=== PATIENT | female | born 1935 | race Hispanic/Latino ===

== ENCOUNTER 2017-07-23 22:33 | Observation (INO) | payer MEDICARE, BC ==
--- NOTE | 2017-07-23 23:19 | ED PDOC ---
Arrival/HPI - General Chief Complaint: Weakness/Neurological Deficit Time Seen by Provider: 07/23/17 22:39 Historian: Patient - History of Present Illness Narrative History of Present Illness (Text): 07/23/17 22:57 Ashley Perry is an 82 year old female, whose past medical history includes questionable migraine and questionable seizures,CAD,Cardiac Stents, who presents to the emergency department complaining of near syncope and generalized weakness that began at 22:00 tonight,prompting her to come to the emergency department. Patient denies chest pain, shortness of breath, visual disturbance, headache, or any other complaint at this time. Time/Duration: 1-3 hours Symptom Onset: Gradual Severity Level: Mild Activities at Onset: Light Context: Home Past Medical History - Provider Review Nursing Documentation Reviewed: Yes - Infectious Disease Hx of Infectious Diseases: None - Cardiac Hx Cardiac Disorders: Yes Hx Hypertension: Yes - Pulmonary Hx Respiratory Disorders: No - Neurological Hx Neurological Disorder: Yes Hx Syncope: Yes - HEENT Hx HEENT Disorder: No - Renal Hx Renal Disorder: No - Endocrine/Metabolic Hx Endocrine Disorders: No - Hematological/Oncological Hx Blood Disorders: No - Integumentary Hx Dermatological Disorder: No - Musculoskeletal/Rheumatological Hx Musculoskeletal Disorders: No - Gastrointestinal Hx Gastrointestinal Disorders: No - Genitourinary/Gynecological Hx Genitourinary Disorders: No - Psychiatric Hx Psychophysiologic Disorder: No Hx Substance Use: No Family/Social History - Physician Review Nursing Documentation Reviewed: Yes Family/Social History: No Known Family HX Smoking Status: Never Smoked Hx Alcohol Use: No Hx Substance Use: No Allergies/Home Meds Allergies/Adverse Reactions: Allergies azithromycin Allergy (Verified 07/23/17 23:01) ANAPHYLAXIS Home Medications: Home Meds Medication Instructions Recorded Confirmed Atorvastatin [Lipitor] 20 mg PO HS 07/23/17 07/23/17 Gabapentin [Neurontin] 300 mg PO HS 07/23/17 07/23/17 Levocetirizine Dihydrochloride 5 mg PO HS 07/23/17 07/23/17 [Xyzal] Metoprolol Succinate 50 mg PO DAILY 07/23/17 07/23/17 Review of Systems - Physician Review All systems were reviewed & negative as marked: Yes - Review of Systems Constitutional: Other (generalized weakness) ENT: absent: Hearing Changes Respiratory: absent: SOB, Cough Cardiovascular: Syncope (Near syncope). absent: Chest Pain, Other Gastrointestinal: absent: Abdominal Pain Genitourinary Female: absent: Dysuria, Frequency Musculoskeletal: absent: Arthralgias, Back Pain Skin: absent: Rash, Pruritis Neurological: absent: Headache, Dizziness Endocrine: absent: Diaphoresis Hemo/Lymphatic: absent: Adenopathy Psychiatric: absent: Depression Physical Exam - Systems Exam Head: Present: Atraumatic, Normocephalic Pupils: Present: PERRL Extroacular Muscles: Present: EOMI Conjunctiva: Present: Normal Mouth: Present: Moist Mucous Membranes Neck: Present: Normal Range of Motion Respiratory/Chest: Present: Clear to Auscultation, Good Air Exchange. No: Respiratory Distress, Accessory Muscle Use Cardiovascular: Present: Regular Rate and Rhythm, Normal S1, S2. No: Murmurs Abdomen: Present: Normal Bowel Sounds. No: Tenderness, Distention, Peritoneal Signs Back: Present: Normal Inspection Upper Extremity: Present: Normal Inspection. No: Cyanosis, Edema Lower Extremity: Present: Normal Inspection. No: Edema Neurological: Present: GCS=15, CN II-XII Intact, Speech Normal Skin: Present: Warm, Dry, Normal Color. No: Rashes Psychiatric: Present: Alert, Oriented x 3, Normal Insight, Normal Concentration Medical Decision Making ED Course and Treatment: 07/23/17 23:24 Impression: 82 year old female complaining of near syncope and generalized weakness at 22: 00 tonight Differential Diagnosis included but are not limited to: Plan: -- EKG -- Chest X-ray -- Head CT w/o contrast -- Labs -- Reassess and disposition Progress Notes: 07/24/17 02:09 CT Head Without Intravenous Contrast Creator : Erica Chamberlain FINDINGS: No intracranial hemorrhage. No intracranial edema. No evidence of acute infarct. Stable focal left insular white matter ischemic change. Mild mucosal thickening of the ethmoid, sphenoid, and maxillary sinuses decreased from prior. Fluid in the right mastoid air cells similar to prior. IMPRESSION: No acute findings. 07/24/17 02:[address] Alvarado who accepts request. Dr. Acosta on consult. 07/24/17 02:32 CXR Impression: As read by me, no pneumothorax, no pneumonia, no cardiomegaly, no infiltrates - Lab Interpretations Lab Results: 07/23/17 23:38 07/23/17 23:38 Lab Results 07/23/17 23:38: WBC 7.8 D, RBC 4.60, Hgb 13.1, Hct 40.6, MCV 88.3, MCH 28.5, MCHC 32.3, RDW 14.3, Plt Count 200, MPV 11.5 H 07/23/17 23:38: Sodium 143, Potassium 4.2, Chloride 104, Carbon Dioxide 29, Anion Gap 14, BUN 22 H, Creatinine 0.8, Est GFR ( Amer) > 60, Est GFR ( Non-Af Amer) > 60, Random Glucose 95, Calcium 8.8, Total Bilirubin 0.4, AST 31, ALT 25, Alkaline Phosphatase 75, Lactate Dehydrogenase 578, Total Creatine Kinase 66, Troponin I < 0.01, Total Protein 6.8, Albumin 4.0, Globulin 2.9, Albumin/Globulin Ratio 1.4 07/23/17 23:38: PT 10.7, INR 0.99, APTT 25.4 I have reviewed the lab results: Yes - RAD Interpretation Radiology Orders: 07/23/17 23:04 HEAD W/O CONTRAST [CT] Stat CHEST PORTABLE [RAD] Stat - Scribe Statement The provider has reviewed the documentation as recorded by the Aida Stanton Provider Scribe Attestation: All medical record entries made by the Sarthakibmert were at my direction and personally dictated by me. I have reviewed the chart and agree that the record accurately reflects my personal performance of the history, physical exam, medical decision making, and the department course for this patient. I have also personally directed, reviewed, and agree with the discharge instructions and disposition. Disposition/Present on Arrival - Present on Arrival Any Indicators Present on Arrival: No History of DVT/PE: No History of Uncontrolled Diabetes: No Urinary Catheter: No History of Decub. Ulcer: No History Surgical Site Infection Following: None - Disposition Have Diagnosis and Disposition been Completed?: Yes Diagnosis: Near syncope Disposition: HOSPITALIZED Disposition Time: 02:29 Patient Plan: Observation Patient Problems: Current Active Problems Problem Status Onset Near syncope Acute Condition: GOOD
[2017-07-23 23:53] LABS: HEMATOCRIT 40.6 % (36.0-48.0); MEAN CELL VOLUME 88.3 fl (80.0-105.0); MEAN CORPUSCULAR HEMOGLOBIN 28.5 pg (25.0-35.0); MEAN CORPUSCULAR HGB CONC 32.3 g/dl (31.0-37.0); MEAN PLATELET VOLUME 11.5 fl (7.0-11.0); RED CELL DISTRIBUTION WIDTH 14.3 % (11.5-14.5); WHITE BLOOD COUNT 7.8 10^3/ul (4.5-11.0)
[2017-07-24 00:02] LABS: INR 0.99 (0.93-1.08); PARTIAL THROMBOPLASTIN TIME 25.4 Seconds (23.7-30.8)
[2017-07-24 00:10] LABS: ALB/GLOB RATIO 1.4 (1.1-1.8); ALKALINE PHOSPHATASE 75 U/L (38-126); ALT/SGPT 25 U/L (7-56); AST/SGOT 31 U/L (14-36); BILIRUBIN,TOTAL 0.4 mg/dL (0.2-1.3); BLOOD UREA NITROGEN 22 mg/dL (7-21); CALCIUM 8.8 mg/dL (8.4-10.5); CARBON DIOXIDE 29 mmol/L (21-33); CHLORIDE 104 mmol/L (98-107); GFR AFRICAN-AMERICAN > 60; GLUCOSE,RANDOM 95 mg/dL (70-110); POTASSIUM 4.2 mmol/L (3.6-5.0); SODIUM 143 mmol/L (132-148); TOTAL PROTEIN 6.8 g/dL (5.8-8.3)
[2017-07-24 00:31] LABS: TROPONIN I < 0.01 ng/mL
--- NOTE | 2017-07-24 01:31 | CT ---
EXAM: CT Head Without Intravenous Contrast EXAM DATE/TIME: 07/23/2017 11:04 PM CLINICAL HISTORY: 82 years old, female; Signs and symptoms; Syncope and collapse; Additional info: Near syncope TECHNIQUE: Axial computed tomography images of the head/brain without intravenous contrast. All CT scans at this facility use one or more dose reduction techniques, viz.: automated exposure control; ma/kV adjustment per patient size (including targeted exams where dose is matched to indication; i.e. head); or iterative reconstruction technique. COMPARISON: CT - HEAD W/O CONTRAST 12/01/2016 11:19:48 AM FINDINGS: No intracranial hemorrhage. No intracranial edema. No evidence of acute infarct. Stable focal left insular white matter ischemic change. Mild mucosal thickening of the ethmoid, sphenoid, and maxillary sinuses decreased from prior. Fluid in the right mastoid air cells similar to prior. IMPRESSION: No acute findings.
[2017-07-24] MEDS ORDERED: Sodium Chloride 0.9% 1,000 ML IV SCH (06:30)
[2017-07-24 06:46] VITALS: BMI 22.1
[2017-07-24 06:50] VITALS: O2SAT 95
--- NOTE | 2017-07-24 08:59 | RAD ---
HISTORY: near syncope COMPARISON: 04/12/2017. FINDINGS: LUNGS: The lungs are hyperinflated and there is peribronchial thickening with chronic changes in both lungs. PLEURA: No significant pleural effusion identified, no pneumothorax apparent. CARDIOVASCULAR: Normal. OSSEOUS STRUCTURES: No significant abnormalities. VISUALIZED UPPER ABDOMEN: Normal. OTHER FINDINGS: None. IMPRESSION: No acute findings.
[2017-07-24] MEDS ORDERED: Metoprolol Succinate 50 mg XL Tab PO SCH (10:00)
--- NOTE | 2017-07-24 10:09 | CARD ---
APPROVED REPORT EKG Measurement Heart [id number] <Conclusion> Sinus bradycardia with premature atrial complexes Nonspecific ST and T wave abnormality Abnormal ECG
--- NOTE | 2017-07-24 10:58 | CP.PCM.HP ---
<Brooke Cid - Last Filed: 07/24/17 11:15> History of Present Illness - History of Present Illness History of Present Illness: PGY-2 h&p for Dr. Alvarado 82 year old female, whose past medical history includes migraine, CAD, Cardiac Stents who presents to the emergency department after near syncope episode with generalized weakness. Patient states that she was sitting on the cough watching TV when she felt an odd sensation wash over her. She began to shake and felt weak. Patient states that it occurred around 10 pm and lasted about 10 minutes. She states that during the event she called her grandson over the phone. She denies any loss of consciousness, or trauma. Patient denies chest pain, shortness of breath, visual disturbance, headache, or any other complaint at this time. She denies any previous episodes. Patient states that she recent went to her neurologist and had EEG which showed possible seizure activity. PMH: migraine, CAD, Cardiac Stents PSH: cardiac stents social hx: former smoker quit 48 yo, denies etoh use, illicit drug use fam hx: heart disease allergy: azithromycin home meds: lipitor, metoprolol succinate, gabapentin, xyzal Present on Admission - Present on Admission Any Indicators Present on Admission: No Review of Systems - Constitutional Constitutional: Chills, Fatigue, Weakness. absent: Fever, Headache - EENT Eyes: absent: Change in Vision Nose/Mouth/Throat: absent: Nasal Discharge, Sore Throat - Cardiovascular Cardiovascular: absent: Chest Pain, Diaphoresis, Leg Edema, Palpitations - Respiratory Respiratory: absent: Cough, Dyspnea - Gastrointestinal Gastrointestinal: absent: Abdominal Pain, Constipation, Diarrhea, Nausea, Vomiting - Genitourinary Genitourinary: absent: Difficulty Urinating, Dysuria, Hematuria - Musculoskeletal Musculoskeletal: absent: Back Pain, Numbness, Tingling - Integumentary Integumentary: absent: Pruritus, Rash, Skin Ulcer, Sores, Wounds, Jaundice - Neurological Neurological: Weakness. absent: Disequilibrium, Dizziness, Numbness, Headaches , Syncope - Hematologic/Lymphatic Hematologic: absent: Easy Bleeding, Easy Bruising Past Patient History - Infectious Disease Hx of Infectious Diseases: None - Past Social History Smoking Status: Former Smoker - CARDIAC Hx Hypercholesterolemia: Yes Hx Hypertension: Yes - PULMONARY Hx Respiratory Disorders: No - NEUROLOGICAL Hx Seizures: Yes - HEENT Hx HEENT Problems: No - RENAL Hx Chronic Kidney Disease: No - ENDOCRINE/METABOLIC Hx Endocrine Disorders: No - HEMATOLOGICAL/ONCOLOGICAL Hx Blood Disorders: No - INTEGUMENTARY Hx Dermatological Problems: No - MUSCULOSKELETAL/RHEUMATOLOGICAL Hx Falls: No - GASTROINTESTINAL Hx Gastrointestinal Disorders: No - GENITOURINARY/GYNECOLOGICAL Hx Genitourinary Disorders: No - PSYCHIATRIC Hx Substance Use: No - SURGICAL HISTORY Hx Cardiac Catheterization: Yes Hx Coronary Stent: Yes Meds Allergies/Adverse Reactions: Allergies Allergy/AdvReac Type Severity Reaction Status Date / Time azithromycin Allergy ANAPHYLAXIS Verified 07/23/17 23:01 Physical Exam - Constitutional Appears: Well, No Acute Distress - Head Exam Head Exam: ATRAUMATIC, NORMAL INSPECTION, NORMOCEPHALIC - Eye Exam Eye Exam: EOMI, Normal appearance - ENT Exam ENT Exam: Mucous Membranes Moist - Respiratory Exam Respiratory Exam: Clear to Auscultation Bilateral, NORMAL BREATHING PATTERN. absent: Decreased Breath Sounds, Rales, Rhonchi, Wheezes, Respiratory Distress, Stridor - Cardiovascular Exam Cardiovascular Exam: REGULAR RHYTHM, +S1, +S2. absent: Tachycardia, Diastolic murmur, Systolic Murmur - GI/Abdominal Exam GI & Abdominal Exam: Normal Bowel Sounds, Soft. absent: Distended, Firm, Guarding, Tenderness - Extremities Exam Extremities exam: Positive for: normal inspection. Negative for: pedal edema, tenderness - Neurological Exam Neurological exam: Alert, Oriented x3 - Skin Skin Exam: Dry, Intact, Normal Color, Warm Results - Vital Signs Recent Vital Signs: Last Vital Signs Temp 97.5 F L 07/24/17 06:29 Pulse 72 07/24/17 06:29 Resp 18 07/24/17 06:29 BP 145/77 07/24/17 06:29 Pulse Ox 95 07/24/17 06:18 - Labs Result Diagrams: 07/23/17 23:38 07/23/17 23:38 Assessment & Plan - Assessment and Plan (Free Text) Assessment: 82 year old female, whose past medical history includes migraine, CAD, Cardiac Stents who presents to the emergency department after near syncope episode with generalized weakness. Plan: 1. near syncope - head ct no acute findings - EKG showed sinus bradycardia - orthostatic BP pending - carotid doppler - cont IVF, BUN is elevated - cont gabapentin - cardiology and neuro consulted 2. CAD - cont lipitor and metoprolol <Emery Alvarado S - Last Filed: 07/24/17 15:12> Results - Vital Signs Recent Vital Signs: Last Vital Signs Temp 97.8 F 07/24/17 12:08 Pulse 78 07/24/17 12:08 Resp 16 07/24/17 12:08 BP 129/63 07/24/17 12:08 Pulse Ox 95 07/24/17 06:18 - Labs Result Diagrams: 07/23/17 23:38 07/23/17 23:38 Assessment & Plan - Assessment and Plan (Free Text) Plan: Pt seen and examined by me. I reviewed the note of the medical sonographer and agree with it. Labs and medications reviewed.Will get Cardio and Neuro evaluation. IVF for elevated BUN. Pt with hx of CAD.
[2017-07-24 12:08] VITALS: BP 129/63; PULSE 78; RESP 16; TEMP 97.8
--- NOTE | 2017-07-24 13:36 | CP.PCM.CON ---
<Aubrie Hearn - Last Filed: 07/24/17 16:02> History of Present Illness - History of Present Illness History of Present Illness: Neurology Consult Note for Edmond Ozuna PGY2 Reason for consult: Syncope This is an 82Y F with PMH migraines, CAD s/p stents who came to ED for near syncopal episode. Patient reports she was sitting at home watching TV when she all of a sudden felt light headed with a "weird" sensation come over her from her head down. She states she began to shake, but did not fall, hit her head, bite her tongue, lose bowel/bladder incontinence or lose consciousness. She reports the episode lasted about 10 minutes and resolved on its own. She denies having CP, vision changes, SOB, headache, n/v/d, numbness/tingling, fever or chills. She does follow up with Dr. Aguila who recently did a 72hr ambulatory EEG which she reports that it could be possibly positive for seizure activity. Dr. Aguila offered to start her on a medication that she does not know the name , but refused due to side effects. PMH: migraines, CAD s/p stents PSH: Cardiac stent All: Zithromax Home meds: As per DEC SH: Denies EtOH or drug use. Former smoker- quit >40yrs ago. Lives with family and is able to function by herself. Review of Systems - Review of Systems All systems: reviewed and no additional remarkable complaints except Review of Systems: + lightheadedness Past Patient History - Infectious Disease Hx of Infectious Diseases: None - Past Social History Smoking Status: Former Smoker Alcohol: None Drugs: Denies Home Situation {Lives}: With Family - CARDIAC Hx Hypercholesterolemia: Yes Hx Hypertension: Yes - PULMONARY Hx Respiratory Disorders: No - NEUROLOGICAL Hx Seizures: Yes - HEENT Hx HEENT Problems: No - RENAL Hx Chronic Kidney Disease: No - ENDOCRINE/METABOLIC Hx Endocrine Disorders: No - HEMATOLOGICAL/ONCOLOGICAL Hx Blood Disorders: No - INTEGUMENTARY Hx Dermatological Problems: No - MUSCULOSKELETAL/RHEUMATOLOGICAL Hx Falls: No - GASTROINTESTINAL Hx Gastrointestinal Disorders: No - GENITOURINARY/GYNECOLOGICAL Hx Genitourinary Disorders: No - PSYCHIATRIC Hx Substance Use: No - SURGICAL HISTORY Hx Cardiac Catheterization: Yes Hx Coronary Stent: Yes Meds Home Medications: Home Medication List Medication Instructions Recorded Confirmed Type Atorvastatin [Lipitor] 20 mg PO HS tab 07/24/17 Rx Gabapentin [Neurontin] 300 mg PO HS cap 07/24/17 Rx Metoprolol Succinate [Toprol XL] 50 mg PO DAILY tab 07/24/17 Rx Allergies/Adverse Reactions: Allergies Allergy/AdvReac Type Severity Reaction Status Date / Time azithromycin Allergy ANAPHYLAXIS Verified 07/23/17 23:01 - Medications Medications: Current Medications Atorvastatin Calcium (Lipitor) 20 mg PO HS [facility] Gabapentin (Neurontin) 300 mg PO HS [facility] PRN Reason: Protocol Sodium Chloride (Sodium Chloride 0.9%) 1,000 mls @ 100 mls/hr IV .Q10H [facility] Stop: 07/24/17 16:29 Last Admin: 07/24/17 07:05 Dose: 100 mls/hr Metoprolol Succinate (Toprol Xl) 50 mg PO DAILY [facility] Last Admin: 07/24/17 10:51 Dose: 50 mg Physical Exam - Constitutional Appears: No Acute Distress - Head Exam Head Exam: ATRAUMATIC, NORMAL INSPECTION, NORMOCEPHALIC - Eye Exam Eye Exam: Normal appearance, PERRL Pupil Exam: NORMAL ACCOMODATION, PERRL - ENT Exam ENT Exam: Mucous Membranes Moist - Respiratory Exam Respiratory Exam: Clear to Auscultation Bilateral, NORMAL BREATHING PATTERN. absent: Rales, Rhonchi, Wheezes - Cardiovascular Exam Cardiovascular Exam: REGULAR RHYTHM, +S1, +S2. absent: Gallop, Rubs, Systolic Murmur - GI/Abdominal Exam GI & Abdominal Exam: Normal Bowel Sounds, Soft. absent: Rebound, Rigid, Tenderness - Extremities Exam Extremities exam: Positive for: normal inspection. Negative for: calf tenderness, pedal edema - Neurological Exam Neurological exam: Alert, CN II-XII Intact, Normal Gait, Oriented x3 - Psychiatric Exam Psychiatric exam: Normal Affect, Normal Mood - Skin Skin Exam: Dry, Intact, Normal Color, Warm Results - Vital Signs Recent Vital Signs: Last Vital Signs Temp 97.8 F 07/24/17 12:08 Pulse 78 07/24/17 12:08 Resp 16 07/24/17 12:08 BP 129/63 07/24/17 12:08 Pulse Ox 95 07/24/17 06:18 - Labs Result Diagrams: 07/23/17 23:38 07/23/17 23:38 Assessment & Plan - Assessment and Plan (Free Text) Assessment: This is an 82Y F with PMH migraines, CAD s/p stents who came to ED for near syncopal episode with possible positive ambulatory EEG for seizure. Head CT noted to be negative. Plan: - Will order carotid doppler - Orthostatics were negative - Physical therapy - Recommend cardiac evaluation to r/o arrhythmia - Avoid sudden drops in BP No further neurologic work up needed at this time. Thank you for this consultation. Will sign off. Please reconsult if needed. Patient can follow up with Dr. Aguila as outpatient. Case seen, discussed and reviewed with Dr. Ayon. Edmond Hearn PGY2 - Date & Time Date: 07/24/17 Time: 13:40 <Bro Ayon - Last Filed: 07/24/17 16:25> Meds - Medications Medications: Current Medications Atorvastatin Calcium (Lipitor) 20 mg PO HS [facility] Gabapentin (Neurontin) 300 mg PO HS [facility] PRN Reason: Protocol Sodium Chloride (Sodium Chloride 0.9%) 1,000 mls @ 100 mls/hr IV .Q10H [facility] Stop: 07/24/17 16:29 Last Admin: 07/24/17 07:05 Dose: 100 mls/hr Metoprolol Succinate (Toprol Xl) 50 mg PO DAILY [facility] Last Admin: 07/24/17 10:51 Dose: 50 mg Results - Vital Signs Recent Vital Signs: Last Vital Signs Temp 97.8 F 07/24/17 12:08 Pulse 78 07/24/17 12:08 Resp 16 07/24/17 12:08 BP 129/63 07/24/17 12:08 Pulse Ox 95 07/24/17 06:18 - Labs Result Diagrams: 07/23/17 23:38 07/23/17 23:38 Assessment & Plan - Assessment and Plan (Free Text) Plan: c/w gabapentin 300mg po qhs. Attending/Attestation - Attestation I have personally seen and examined this patient.: Yes I have fully participated in the care of the patient.: Yes I have reviewed all pertinent clinical information: Yes
--- NOTE | 2017-07-24 15:10 | CON ---
DATE: 07/24/2017 INDICATIONS: Lightheadedness and near syncope. HISTORY OF PRESENT ILLNESS: This is an 82-year-old woman who was admitted last night, when she developed lightheadedness, weakness, and almost passed out at home. She did not describe vertigo, but felt very weak. She has been undergoing a neurologic evaluation, which included EEG. She believes she may have a seizure disorder and is not sure, if she had a seizure last night. There was no chest pain, shortness of breath, orthopnea, PND, fall, injury, palpitations, edema, claudication, fever, chills, cough, sputum production, hemoptysis, abdominal pain, nausea, vomiting, diarrhea, constipation, or melena. PAST MEDICAL HISTORY: Notable for hypertension, coronary artery disease, remote coronary interventions, migraine headaches, and recent neurologic evaluation with an EEG; the details of that evaluation are not available at this time. There is no history of rheumatic fever, myocardial infarction, congestive heart failure, arrhythmia, stroke, TIA, diabetes, or gout. MEDICATIONS AT THE TIME OF ADMISSION: Include Lipitor, metoprolol, gabapentin, and Xyzal. ALLERGIES: SHE NOTES ALLERGY TO AZITHROMYCIN. FAMILY HISTORY: Noncontributory. SOCIAL HISTORY: She lives at home. She is ambulatory. She does not smoke cigarettes. She does not drink alcohol significantly. PHYSICAL EXAMINATION: GENERAL: She is a well-developed woman lying in bed on telemetry in no acute distress. VITAL SIGNS: Notable for sinus rhythm at 72 beats per minute. She is afebrile. Blood pressure 144/77, respiratory rate 18, and O2 saturation 95% on room air. HEENT: Reveals no neck vein distension, thyromegaly, or carotid bruits. Mucous membranes are moist. Conjunctivae pink. NECK: Supple. LUNGS: Rocha clear throughout. HEART: Revealed normal first and second heart sounds. No murmur, gallop, rub, or click. ABDOMEN: Soft. Bowel sounds present. No mass, organomegaly, tenderness, rebound, or guarding. No CVA tenderness. No palpable abdominal aortic aneurysm. EXTREMITIES: Revealed no cyanosis, clubbing, or edema. NEUROLOGIC: Awake, alert, and oriented. PSYCHIATRIC: Normal as to mood and affect. SKIN: Warm and dry. No rash or cellulitis. LABORATORY AND IMAGING: Chest x-ray reveals no acute findings. EKG is notable for sinus bradycardia at 56 beats per minute, LVH by voltage, nonspecific ST wave changes. CT scan of the head reveals no acute findings. CBC is unremarkable. PT/INR and PTT are unremarkable. Electrolytes, BUN, creatinine, blood sugars, LFTs, CK, troponin, all unremarkable. IMPRESSION: Ashley Perry is an 82-year-old woman who had a lightheaded spell with near syncope at home. She is undergoing neurologic evaluation for migraine headache and possible seizure disorder. Details unavailable at this time. She has a history of coronary artery disease, coronary intervention remotely, hypertension, and hyperlipidemia. PLAN: At this time, I would check postural vital signs. She will undergo a neurologic evaluation by Dr. Ayon. Carotid ultrasound is ordered. She received IV fluids. She is getting metoprolol, gabapentin, and Lipitor. She can be out of bed to a chair with fall precautions provided that her orthostatics are unremarkable. I will follow along with you. I will review her old cardiac records. I will make additional recommendations based on her clinical course. Eric Acosta MD [facility]
--- NOTE | 2017-07-24 17:26 | US ---
PROCEDURE: Bilateral carotid artery duplex ultrasound HISTORY: Carotid stenosis syncope PHYSICIAN(S): Martin Bah MD. TECHNIQUE: Duplex sonography and color-flow Doppler were used to evaluate the carotid bifurcations and limited segments of the vertebral arteries bilaterally. FINDINGS: There is mild smooth heterogeneous plaque noted at the carotid bifurcations bilaterally. The peak systolic velocity in the proximal right internal carotid artery is 68 cm/sec. This corresponds to a 20 to 39% proximal right ICA stenosis. Normal systolic velocities are noted in the proximal right external carotid artery. There is antegrade flow in the dominant right vertebral artery. The peak systolic velocity in the proximal left internal carotid artery is 80 cm/sec. This corresponds to a 20 to 39% proximal left ICA stenosis. Normal systolic velocities are noted in the proximal left external carotid artery. There is antegrade flow in the left vertebral artery. IMPRESSION: 1. Bilateral 20-39% proximal ICA stenoses. 2. Antegrade flow in both vertebral arteries.
== END 2017-07-24 18:32 | disposition home or self-care (01) ==
LOC: ED 22:33 → ERH 07-24 02:26 → 2RNO 07-24 04:46
PROVIDERS: ADMIT Internal Medicine Nephrology; ATTEND Internal Medicine Nephrology
DX: R55 Syncope and collapse (principal); R40.2412 Glasgow coma scale score 13-15, at arrival to emergency department; E78.00 Pure hypercholesterolemia, unspecified; E78.5 Hyperlipidemia, unspecified; I10 Essential (primary) hypertension; I25.10 Atherosclerotic heart disease of native coronary artery without angina pectoris; Z79.899 Other long term (current) drug therapy; Z87.891 Personal history of nicotine dependence; Z95.5 Presence of coronary angioplasty implant and graft; G43.909 Migraine, unspecified, not intractable, without status migrainosus; Z86.69 Personal history of other diseases of the nervous system and sense organs; Z88.1 Allergy status to other antibiotic agents; Z87.892 Personal history of anaphylaxis
CPT/HCPCS: 70450; 71010; 80053; 82550; 83615; 84484; 85027; 85610; 85730; 93005; 93880; 99285; G0378; J7040